=== PATIENT | male | born 1955 | race Caucasian/White ===

== ENCOUNTER → 2020-06-19 | Day surgery (SDC) | payer BC ==
[2020-06-16 12:44] LABS: Basophils # (auto) 0.1 10 ^3/uL (0-0.2); Eosinophils # (auto) 0.3 10 ^3/uL (0-0.8); Lymphocytes # (auto) 2.1 10 ^3/uL (0.4-5.4); Monocytes # (auto) 0.8 10 ^3/uL (0-1.3)
[2020-06-16 12:46] LABS: Basophils % (auto) 1.3 % (0.0-2.0); Eosinophils % (auto) 2.8 % (0.0-7.0); Hematocrit 36.2 % (41.0-53.0); Hemoglobin 12.5 g/dL (13.5-17.5); Lymphocytes % (auto) 19.8 % (10.0-50.0); Mean Corpuscular Hemoglobin 27.4 pg (28.0-32.0); Mean Corpuscular Hgb Conc. 34.5 g/dL (32.0-36.0); Mean Corpuscular Volume 79.3 fL (80.0-100.0); Monocytes % (auto) 7.5 % (0.0-12.0); Neutrophils # (auto) 7.3 10 ^3/uL (1.6-8.6); Neutrophils % (auto) 68.6 % (37.0-80.0); Nucleated Red Blood Cells % 0.2 %; Platelet Count (auto) 433 10^3/uL (140-450); Red Blood Cells 4.56 10^6/uL (4.5-5.90); Red Cell Distribution Width 16.5 % (11.8-14.3); White Blood Cell 10.6 10^3/uL (4.4-10.8)
[2020-06-16 13:22] LABS: INR 1.03 (0.9-1.15); Partial Thromboplastin Time 35.7 sec (23.0-31.2)
[~2020-06-19] MED LIST: AMIT25TA9 PO; CLOP75TA28 PO; FLUT1AER6 IN; LEVEMIR SC; LIDOCAINE VISCOUS 2% 15ML UD ONE; METF-372 PO; PIRO10CA PO; SODIUM CHLORIDE LOCK 10 ML ONE
[2020-06-19] MEDS: fentaNYL CITRATE 100 MCG/2 ML VL ONE ×3 (12:29→12:43)
[2020-06-19] MEDS: diphenhdrAMINE HCL 50 MG/1 ML VL ONE ×2 (12:29→12:47)
[2020-06-19] MEDS: MIDAZOLAM HCL 5 MG/ML-1ML VIAL ONE ×4 (12:29→15:59)
[2020-06-19 13:40] VITALS: BP 120/62
== END | disposition home or self-care (01) ==
LOC: GI 11:09
PROVIDERS: ATTEND Internal Medicine Gastroenterology
DX: R19.4 Change in bowel habit (principal); K29.50 Unspecified chronic gastritis without bleeding; D12.4 Benign neoplasm of descending colon; K63.89 Other specified diseases of intestine; K31.89 Other diseases of stomach and duodenum; E11.9 Type 2 diabetes mellitus without complications; K25.9 Gastric ulcer, unspecified as acute or chronic, without hemorrhage or perforation; K29.80 Duodenitis without bleeding; Z98.890 Other specified postprocedural states; Z79.899 Other long term (current) drug therapy; Z20.822 Contact with and (suspected) exposure to COVID-19; Z88.1 Allergy status to other antibiotic agents; Z87.891 Personal history of nicotine dependence
CPT/HCPCS: 36415; 43239; 45385; 82962; 85025; 85610; 85730; 88305; 88342; J1200; J2250; J3010; J7030; U0003; 99152; 99153